=== PATIENT | female | born 1965 | race Caucasian/White ===

== ENCOUNTER → 2017-11-25 08:56 | Outpatient (CLI) | payer OTHER, SELFPAY ==
[2017-11-25 10:46] LABS: BUN Creatinine Ratio 14.3 (6-22); Blood Urea Nitrogen 10 mg/dL (7-17); Calcium 9.8 mg/dL (8.4-10.2); Carbon Dioxide 31 mmol/L (22-32); Chloride 101 mmol/L (98-107); Estimated Glomerular Filt Rate > 60.0 mL/min (>60); Glucose 96 mg/dL (70-100); HDL Cholesterol 80 mg/dL (40-60); HEMOLYSIS < 15 (0-50); Potassium 4.3 mmol/L (3.4-5.1); Sodium 141 mmol/L (137-145); Triglycerides 257 mg/dL (35-150)
[2017-11-25 10:55] LABS: LDL Cholesterol Calculated 203 mg/dL (<100)
[2017-11-25 10:56] LABS: Cholesterol 334 mg/dL (140-199)
[2017-11-25 11:14] LABS: TSH w/ Reflex to FT4 4.63 uIU/mL (0.47-4.68)
[2017-11-25 11:14] LABS: Hepatitis B Surface Antigen NEGATIVE s/c (NEGATIVE)
[2017-11-25 11:32] LABS: HIV 1 and 2 Antibody NEGATIVE (NEGATIVE); Hep C Virus Ab w/Reflex Quant NEGATIVE s/c (NEGATIVE)
[2017-11-30 18:22] LABS: Rapid Plasma Reagin NON-REACTIVE
== END ==
PROVIDERS: PCP Internal Medicine; Visit Provider Internal Medicine
DX: Z00.00 Encounter for general adult medical examination without abnormal findings (principal); Z11.3 Encounter for screening for infections with a predominantly sexual mode of transmission; E03.9 Hypothyroidism, unspecified
CPT/HCPCS: 36415; 80048; 80061; 84443; 86592; 86703; 86803; 87340